=== PATIENT | female | born 1985 | race Caucasian/White ===

== ENCOUNTER 2018-12-27 17:09 | Emergency (ER) | payer OTHER ==
[~2018-12-27] VITALS: Ht 170.2 cm; Wt 99.3 kg
[2018-12-27 17:18] VITALS: Ht 170.2 cm; Wt 99.3 kg
[2018-12-27 17:52] LABS: AMPHETAMINE QUAL UR NONE DETECTED (See below)
[2018-12-27 18:59] LABS: CALCIUM 8.4 mg/dL (8.5-10.1); CARBON DIOXIDE 25.2 mmol/L (21-32); CHLORIDE SERUM 103 mmol/L (98-107); CREATININE SERUM 0.7 mg/dL (0.6-1.0); GFR1 > 60 mL/min; GLUCOSE SERUM 131 mg/dL (74-106); POTASSIUM SERUM 3.5 mmol/L (3.5-5.1); SODIUM SERUM 141 mmol/L (136-145)
[2018-12-27 19:04] LABS: ALBUMIN 3.6 g/dL (3.4-5.0); ALKALINE PHOSPHATASE 79 U/L (46-116); ALT/SGPT 23 U/L (14-59); AST/SGOT 17 U/L (15-37); TOTAL PROTEIN, SERUM 7.5 g/dL (6.4-8.2)
[2018-12-27 20:30] VITALS: BP 104/64
== END 2018-12-27 21:30 | disposition home or self-care (01) ==
LOC: ED 17:09
PROVIDERS: Specialist
DX: F12.929 Cannabis use, unspecified with intoxication, unspecified (principal); G47.00 Insomnia, unspecified; Z98.890 Other specified postprocedural states
CPT/HCPCS: 36415; G0480; J7030